=== PATIENT | male | born 1985 | race Caucasian/White ===

== ENCOUNTER 2021-01-17 11:13 | Outpatient (CLI) | payer SELFPAY ==
[~2021-01-17 11:13] MED LIST: AC500T PO; CEPH500C PO; CYCL10TA9 PO; DOXY-233 PO; DOXY100C2 PO; NAPR-243 PO; TRAM50TA2 PO
[2021-01-17 11:26] VITALS: BP 121/70
[2021-01-17] MEDS ORDERED: ONDANSETRON 4 MG/2 ML (SDV) Z0FRAN IV PRN (11:30)
[2021-01-17] MEDS ORDERED: diphenhydrAMINE 50 MG/ML INJ (BENADRYL) IV PRN (11:30)
[2021-01-17] MEDS ORDERED: ACETAMINOPHEN 500 MG TAB (TYLENOL) PO PRN (11:30)
[2021-01-17] MEDS ORDERED: EPINEPHrine INJECTION 1 MG/ML AMP IM PRN (11:30)
[2021-01-17] MEDS ORDERED: CASIRIVIMAB/IMDEVIMAB 1,200 MG in NS (IVPB) 250 ML IV ONE (11:30)
[2021-01-17 12:30] VITALS: BP 119/70
== END 2021-01-17 13:06 | disposition home or self-care (01) ==
LOC: INFUSION 11:13
PROVIDERS: ATTEND Nurse Practitioner Family
DX: Z23 Encounter for immunization (principal); U07.1 COVID-19